=== PATIENT | female | born 1995 | race Caucasian/White ===

== ENCOUNTER 2021-12-26 21:57 | Emergency (ER) | payer MEDICAID, SELFPAY ==
[2021-12-26 22:00] VITALS: BP 123/101; PULSE 111; RESP 20; TEMP 36.6; O2SAT 100; BMI 34.2
--- NOTE | 2021-12-26 22:10 | CT_ITS ---
STUDY: CT BRAIN WITHOUT CONTRAST REASON FOR EXAM: Female, 26 years old. paresthesias RADIATION DOSAGE (If Supplied By Facility): CTDIvol = ( 44.99 ) mGy, DLP = ( 796.11 ) mGycm TECHNIQUE: Transaxial CT imaging of the brain was performed without administration of intravenous contrast material. Individualized dose optimization techniques were used for this CT. COMPARISON: No relevant priors. FINDINGS: Normal soft tissue structures. Normal calvarium. Normal size ventricles and extra-axial spaces for the patient''s age. Normal white matter tracts of the cerebral hemispheres. Normal basal ganglia and thalami. Normal brainstem. Normal cerebellum. There is no intracranial hemorrhage. There are no findings of an acute ischemic infarction. Normal visualized paranasal sinuses. CT/Brain/Head without Contrast IMPRESSION: Normal unenhanced CT scan of the brain. Electronically Signed: Gerald Hurt DO at 23:42 EST ,
--- NOTE | 2021-12-26 22:34 | EDS_ITS ---
HPI History of Present Illness Chief Complaint: Substance Abuse Detail of Chief Complaint: Intermittent locking of the jaw on the right Informant: patient Onset/Context/Timing Onset: Today Narrative Narrative: Patient presents via EMS because she keeps having intermittent locking sensation in her right jaw. She states symptoms started about an hour and a half ago. Her jaw will lock up for about 10 minutes and then released. Short time later to lock up again. She reports some paresthesias to the right face. Nursing staff does note when they first examined her she had a slight left facial droop. At the time my exam she is a right facial droop. [facility] Medical History Methamphetamine use Medical History no medical history Home Medications NK 12/26/21 [History Last Taken Unknown] Allergy/AdvReac Type Severity Reaction Status Date / Time erythromycin base AdvReac Hives Verified 12/26/21 22:05 Surgical History Hx of tonsillectomy Social History Smoking Status: Current every day smoker tobacco type: cigarettes ROS ROS ED Constitutional Constitutional ED: Denies chills or fever(s) Eyes Eyes: Denies blurry vision or change in vision ENT ENT ED: Reports other Details: Right jaw pain ; Denies ear pain or rhinorrhea Cardiovascular Cardiovascular: Denies chest pain or palpitations Respiratory/Chest Respiratory/Chest: Denies cough or dyspnea Gastrointestinal Gastrointestinal: Denies abdominal pain, diarrhea, nausea or vomiting Musculoskeletal Musculoskeletal: Reports arthralgias Neurologic Neurologic: Reports headache(s) and paresthesias Allergic/Immunologic Allergic/Immunologic ED: Denies urticaria EXAM Physical Exam Const Vital Signs: 12/26/21 22:00 Temperature 97.8 F Temperature Source Temporal Pulse Rate 111 H Respiratory Rate 20 H Blood Pressure 123/101 H Blood Pressure Mean 108 Pulse Ox 100 Oxygen Delivery Method Room Air Positive well nourished and well developed General Appearance ED: well developed HEENT Reports moist mucous membranes Eyes PERRL and EOMs intact bilaterally Neck supple Chest Wall inspection of chest normal and palpation of chest normal Resp normal respiratory effort and clear to auscultation bilaterally Cardio regular rate and regular rhythm GI non-tender Palpation: soft Extremity normal to inspection Neuro oriented x3 Neuro Narrative: Patient able to raise eyebrows without difficulty. She is able to smile and upper lip curves appropriately. She appears to be holding down the right leg she is able to open her mouth fully for exam. She reports decreased sensation to light touch over the right forehead and maxillary region along with the neck. She reports normal sensation with light touch over the right jaw. She is normal strength and sensation noted in the extremities. Sensorium / Orientation: alert Skin no rashes or lesions noted MDM MDM MDM Narrative Medical decision making narrative: Lab work and head CT obtained. Patient given Toradol, Reglan, Benadryl, IV fluids. Lab Data Attestation: I reviewed the patient's lab results. Labs: Laboratory Results - last 24 hr 12/26/21 12/26/21 12/26/21 22:03 22:35 22:35 WBC 12.4 H RBC 5.17 Hgb 15.2 H Hct 44.9 MCV 86.8 MCH 29.4 MCHC 33.9 RDW Std Deviation 40.2 RDW Coeff of Gabriela 12.7 Plt Count 258 MPV 10.7 Immature Gran % (Auto) 0.300 Neut % (Auto) 70.7 H Lymph % (Auto) 21.6 [place] % (Auto) 5.2 Eos % (Auto) 1.9 Baso % (Auto) 0.3 Absolute Neuts (auto) 8.8 H Absolute Lymphs (auto) 2.68 Nucleated RBC % 0 Sodium 139 Potassium 3.7 Chloride 105 Carbon Dioxide 29.0 Anion Gap 5 BUN 12 Creatinine 0.84 Estim Creat Clear Calc 92.13 Est GFR (MDRD) Af Amer 106 Est GFR (MDRD) Non-Af 88 BUN/Creatinine Ratio 14.3 Glucose 91 Calcium 8.7 Serum , Qual POC Glucose 104 12/26/21 22:35 WBC RBC Hgb Hct MCV MCH MCHC RDW Std Deviation RDW Coeff of Gabriela Plt Count MPV Immature Gran % (Auto) Neut % (Auto) Lymph % (Auto) [place] % (Auto) Eos % (Auto) Baso % (Auto) Absolute Neuts (auto) Absolute Lymphs (auto) Nucleated RBC % Sodium Potassium Chloride Carbon Dioxide Anion Gap BUN Creatinine Estim Creat Clear Calc Est GFR (MDRD) Af Amer Est GFR (MDRD) Non-Af BUN/Creatinine Ratio Glucose Calcium Serum , Qual NEGATIVE POC Glucose Radiography Diagnostic Testing: Clinical Impression(s) from Imaging Studies Brain CT 12/26/21 22:10 IMPRESSION: Normal unenhanced CT scan of the brain. Electronically Signed: Gerald Hurt DO at 23:42 EST , Treatment and Re-Evaluation Comments:: Work-up is unremarkable with normal labs. Head CT unremarkable. On repeat evaluation patient resting comfortably. She states her headache is resolved and she has not had any further spasms along the right lower mouth. She will be discharged home at this time. Discharge Plan Triage Chief Complaint: Substance Abuse ED Provider: Mariangel Nicholas Dx/Rx/DC Orders Clinical Impression: Migraine Instructions: ED, Migraine (Classical) Prescriptions: No Action NK RF: 0 Primary Care Provider: Care Physician,No Primary Referrals: Doug Deal MD [STAFF PHYSICIAN] - As Needed Care Physician,No Primary [Primary Care Provider] - Disposition Disposition: Home, Self Care
[2021-12-26] MEDS: Ketorolac 30 MG/ML Syringe IV (22:39)
[2021-12-26] MEDS: DiphenhydrAMINE 50 MG/ML Syringe 25 MG IV (22:39)
[2021-12-26] MEDS: Metoclopramide 10 MG/2 ML Vial IV (22:40)
[2021-12-26 22:47] LABS: Eosinophils% 1.9 % (0-5); Hematocrit 44.9 % (37-47); Hemoglobin 15.2 g/dL (12.0-15.0); Lymphocyte % 21.6 % (19-41); Mean Corp Hgb Conc 33.9 g/dL (32-36); Mean Corpuscular Hgb 29.4 pg (27.0-32.0); Mean Corpuscular Volume 86.8 fL (81-99); Mean Platelet Vol. 10.7 fl (6.2-12.0); Monocyte% 5.2 % (0-10); Neutrophil % 70.7 % (47-70); Platelet Count 258 K/mm3 (150-450); RBC Distribution Width CV 12.7 % (11.6-14.6); RBC Distribution Width SD 40.2 fl (35.1-43.9); Red Blood Count 5.17 M/mm3 (4.2-5.4); White Blood Count 12.4 K/mm3 (4.4-11.0)
[2021-12-26 22:48] LABS: Absolute Lymphocyte Count 2.68 X10^3/uL (0.83-4.51); Absolute Neutrophil Count 8.8 X10^3/uL (2.0-7.7); Basophil# 0.04 X10^3/uL; Basophil% 0.3 % (0-1); Eosinophil# 0.24 X10^3/uL; Lymphocyte # 2.68 X10^3/ul (0.83-4.51); Monocyte# 0.65 X10^3/uL; NRBC Flagged by Analyzer 0 % (0-5); Neutrophil # 8.76 X10^3/uL (2.7-7.7)
[2021-12-26 23:01] LABS: Internal QC Validated? YES +Cl - CLEAR BKGD; Pregnancy, Serum, hCG Quali. NEGATIVE Negative
[2021-12-26 23:05] LABS: Anion Gap 5 (5-15); BUN 12 mg/dL (7-18); BUN/Creat Ratio 14.3 RATIO (10-20); Calcium,Total 8.7 mg/dL (8.5-10.1); Chloride 105 mmol/L (98-107); Creatinine, Serum 0.84 mg/dL (0.55-1.02); EST Glomerular Filtration Rate 88 mL/min (>60); Est Glom Filt Rate - Afr Amer 106 mL/min (>60); Estimated Creatinine Clearance 92.13 ml/min; Glucose 91 mg/dL (74-106); Potassium 3.7 mmol/L (3.5-5.1); Sodium Level 139 mmol/L (136-145)
[2021-12-26 23:21] LABS: Bedside Glucose 104 mg/dL (70-110)
--- NOTE | 2021-12-27 00:43 | CM.ED ---
SW Note Referral Source: Substance Abuse on tracker Referral Reason: Substance Abuse on tracker SW met with patient. Patient gave verbal consent to speak to her in the presence of her , Jonh. Patient said that she is at the ED for her face locking up and her neck hurting after using meth. Patient reports no previous [facility] treatment or detox. Patient said that her drug of choice is meth. Patient said that she used meth 1/2 hour before she came to the ED. Patient said that she has been using meth for the last 2 1/2 years daily. SW asked how much meth patient is using and patient said it depends. SW advised that [facility] program does not do meth detox. However, this customs entry writer provided [facility] resource list for patient and included the number for Treatment Navigator. SW advised that [facility] does meth detox and included this on the [facility] resource list. No other SW needs at this time. SW remains available. Plan: Resource provided Octavia JAQUEZ
== END 2021-12-27 00:47 | disposition home or self-care (01) ==
PROVIDERS: Emergency Provider Emergency Medicine; Visit Provider Emergency Medicine
DX: G43.909 Migraine, unspecified, not intractable, without status migrainosus (principal); F15.99 Other stimulant use, unspecified with unspecified stimulant-induced disorder; R29.810 Facial weakness; F17.210 Nicotine dependence, cigarettes, uncomplicated
CPT/HCPCS: 70450; 80048; 82962; 84703; 85025; 96361; 96374; 96375; 99285

== ENCOUNTER 2023-10-02 11:11 | Emergency (ER) | payer MEDICAID, SELFPAY ==
[2023-10-02 11:11] VITALS: BP 138/98; PULSE 92; RESP 16; TEMP 36.7; O2SAT 97; BMI 36.3
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
[2023-10-02 12:04] LABS: Absolute Lymphocyte Count 1.71 X10^3/uL (0.83-4.51); Absolute Neutrophil Count 4.8 X10^3/uL (2.0-7.7); Basophil# 0.04 X10^3/uL; Basophil% 0.6 % (0-1); Eosinophil# 0.02 X10^3/uL; Eosinophils% 0.3 % (0-5); Hematocrit 41.2 % (37-47); Hemoglobin 13.6 g/dL (12.0-15.0); Lymphocyte # 1.71 X10^3/ul (0.83-4.51); Lymphocyte % 23.9 % (19-41); Mean Corpuscular Hgb 29.5 pg (27.0-32.0); Mean Corpuscular Volume 89.4 fL (81-99); Monocyte# 0.47 X10^3/uL; Monocyte% 6.6 % (0-10); NRBC Flagged by Analyzer 0 % (0-5); Neutrophil # 4.84 X10^3/uL (2.7-7.7); Neutrophil % 67.8 % (47-70); Platelet Count 299 K/mm3 (150-450); RBC Distribution Width CV 12.8 % (11.6-14.6); RBC Distribution Width SD 42.1 fl (35.1-43.9); Red Blood Count 4.61 M/mm3 (4.2-5.4); White Blood Count 7.1 K/mm3 (4.4-11.0)
[2023-10-02 12:18] LABS: Anion Gap 6 (5-15); BUN 9 mg/dL (7-18); Calcium,Total 8.8 mg/dL (8.5-10.1); Chloride 107 mmol/L (98-107); Creatinine, Serum 0.75 mg/dL (0.55-1.02); EST Glomerular Filtration Rate 98 mL/min (>60); Est Glom Filt Rate - Afr Amer 119 mL/min (>60); Estimated Creatinine Clearance 79.95 ml/min; Glucose 97 mg/dL (74-106); Sodium Level 141 mmol/L (136-145)
[2023-10-02 12:25] LABS: Amphetamine Urine VISTA NEGATIVE (<1000 ng/mL); Barbiturate Urine VISTA NEGATIVE (< 200 ng/mL); Benzodiazepine Urine VISTA NEGATIVE (< 200 ng/mL); Cocaine Urine VISTA NEGATIVE (< 300 ng/mL); Ecstacy Urine VISTA NEGATIVE (< 500 ng/mL); Methadone Urine VISTA NEGATIVE (< 300 ng/mL); PCP Urine VISTA NEGATIVE (< 25 ng/mL); THC Urine VISTA NEGATIVE (< 50 ng/mL); Vista UDS pH Range 6
[2023-10-02 12:37] LABS: Alcohol, Blood (Medical)-Serum < 3.0 mg/dL; Internal QC Validated? YES +Cl - CLEAR BKGD; Pregnancy, Serum, hCG Quali. NEGATIVE Negative; Record Kit Lot#, Serum Preg. HCG0000667200
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
[2023-10-02 19:00] VITALS: RESP 15
--- NOTE | 2023-10-02 19:11 | ED.RN ---
THIS RN ATTEMPTED TO CALL REPORT. NO ANSWER. THIS RN LEFT A VOICE MESSAGE ON THE ANSWERING MACHINE.
--- NOTE | 2023-10-02 19:12 | ED.RN ---
CALLED PHYSICIANS AT 191 FOR UPDATED ETA, YOEL GAVE A NEW ETA OF 2HRS APPROX 2300
[2023-10-02 20:00] VITALS: RESP 15
[2023-10-02 21:00] VITALS: RESP 16
--- NOTE | 2023-10-02 21:32 | ED.RN ---
LAUREN WITH PHYSICIANS CALLED, SANDY ARAGON HAS BEEN PUSHED TILL 7AM.
[2023-10-02 22:00] VITALS: RESP 15
[2023-10-02 23:00] VITALS: RESP 15
[2023-10-03] VITALS: RESP 15
[2023-10-03 02:00] VITALS: RESP 15
[2023-10-03 04:00] VITALS: RESP 15
[2023-10-03 06:00] VITALS: RESP 15
[2023-10-03 06:50] VITALS: BP 138/98; PULSE 92; RESP 13; O2SAT 97
== END 2023-10-03 07:00 ==
PROVIDERS: Emergency Provider Emergency Medicine; PCP Registered Nurse; Visit Provider Emergency Medicine
DX: R45.851 Suicidal ideations (principal); E78.5 Hyperlipidemia, unspecified; F17.210 Nicotine dependence, cigarettes, uncomplicated; F32.A Depression, unspecified
CPT/HCPCS: 80048; 80307; 82077; 84703; 85025; 87811; 99285; J7030